=== PATIENT | female | born 1950 ===

== ENCOUNTER → 2018-08-16 | Day surgery (SDC) | payer OTHER ==
[~2018-08-16] MED LIST: ASA81 MG PO; CITRACAL + D M1 EACH PO; KEFLEX500 MG PO; LOVAZA1 GM PO; PERCOCET 5-3251 EACH PO; PREVACID30 M1 PO; PROLIXIN10 MG PO; SYNTHROID112 MCG PO; VITAMIN D3400 UNIT PO
== END | disposition home or self-care (01) ==
LOC: ADM 08-13 12:00 → CIR.AMB 04:45 → EDBD 12:00 → CIR.AMB 12:00
DX: N83.292 Other ovarian cyst, left side (principal)